=== PATIENT | female | born 1940 | race African-American/Black ===

== ENCOUNTER 2017-03-26 16:31 | Emergency (ER) | payer OTHER, BC, MEDICARE ==
[~2017-03-26] VITALS: Ht 175.3 cm; Wt 83.9 kg
[2017-03-26 16:42] VITALS: BP 161/98
[2017-03-26] MEDS ORDERED: VITAMIN D3400 UNIT PO (16:45)
[2017-03-26] MEDS ORDERED: COZAAR 50 MG TA50 M2 PO (16:45)
[2017-03-26] MEDS ORDERED: LIPITOR10 MG PO (16:45)
[2017-03-26] MEDS ORDERED: TRIAMTERENE-HC1 EAC3 PO (16:45)
[2017-03-26] MEDS ORDERED: Debrox OT (18:09)
== END 2017-03-26 18:20 | disposition home or self-care (01) ==
LOC: ER 16:31
DX: H61.21 Impacted cerumen, right ear (principal); I10 Essential (primary) hypertension